=== PATIENT | male | born 1965 | race Caucasian/White ===

== ENCOUNTER 2020-02-28 08:35 | Inpatient (IN) ==
--- NOTE | 2020-02-22 11:23 | History & Physical Report ---
Date of Service February 22, 2020 Assessment & Plan (1) Neurogenic claudication due to lumbar spinal stenosis: This time the patient's had a decline neurologic status with developing leg weakness and foot drop. Subsequently recommending urgent lumbar decompression fusion L3-L5 with hardware removal L5-S1. Hopefully we were able to prevent permanent neurologic sequelae and deficits. Risk benefits pros cons alternatives were outlined in detail. Present on Admission?: Yes History of Present Illness Chief Complaint: Back with bilateral leg pain and weakness Primary Care Provider: Dylan Corea This is a 54-year-old male who presents with marked decline in status. He is noting worsening back pain with radiation into the bilateral buttocks posterior thighs to his feet. There is concomitant weakness exacerbated with standing and ambulation. The left leg is markedly worse. He is failed extensive course of nonoperative care and noting decline in function particularly to the left lower extremity quadriceps and dorsiflexion. Allergies Allergy/AdvReac Type Severity Reaction Status Date / Time silver nitrate Allergy Severe Hives Verified 02/20/20 14:12 Penicillins Allergy Unknown UNKNOWN Verified 02/20/20 14:12 Home Medications Home Medications Medication Instructions Recorded Confirmed Type atorvastatin 40 mg PO PM 02/20/20 02/20/20 History famotidine [Pepcid] 40 mg PO QAM 02/20/20 02/20/20 History gabapentin 300 mg PO TID 02/20/20 02/20/20 History tramadol 100 mg PO BID PRN 02/20/20 02/20/20 History Past Med/Surg History Medical History (Updated 02/22/20 @ 11:22 by Nicholas Coreas DO) Chronic back pain Degenerative disc disease Fusion of spine 10 YRS AGO >LUMBAR GERD (gastroesophageal reflux disease) Hyperlipidemia Surgical History (Updated 02/20/20 @ 14:18 by Prachi Rao RN) History of appendectomy History of carpal tunnel release BILAT Hx of decompression of ulnar nerve LEFT Hx of shoulder surgery RIGHT BICEPT TENDON REPAIR Family History (Updated 02/20/20 @ 14:18 by Prachi Rao RN) Mother Diabetes Social History Preferred Language: Citizen Of [place] Communication Ability: Effective Etl Application Developer Required: No Beliefs That Will Affect Care: None Current Living Situation: Significant Other Feels Safe at Home: Yes Smoking Status: Former smoker Second Hand Exposure: No ; Hx Alcohol Use: Yes Alcohol type: beer Hx Substance Use: No Physical Exam Physical Exam: Patient is alert and oriented On exam he is in obvious distress. Ambulates with a stooped posture. He has sensory deficits vertically along the left thigh compared to the right. He exhibits a 4/5 left quadriceps dorsiflexion compared to 5/5 on the right. Heart is regular rate and rhythm Lungs clear to auscultation Results & Data Diagnostic Findings MRI lumbar spine demonstrates evidence of anterolisthesis L4-L5 with marked facet hypertrophy and subarticular disease. He has pre-existing fusion at L5-S1 that appears to be solid. L3-4 has at least moderate subarticular stenosis. With moderate to severe bilateral neuroforaminal disease L3-4 L4-5.
--- NOTE | 2020-02-27 08:45 | Anesthesiology Consultation ---
Date of Service February 27, 2020 Assessment & Plan (1) Encounter for pre-operative examination: EKG AM DOS COVID Status: As of 02/19 nurse interview, patient denies travel outside of [facility] (where he resides), known exposure/sick contacts, symptoms, or testing for coronavirus. Chart Review Chart Review: Acceptable Risk for Surgery and Patient NOT seen in Pre Admission Testing History Surgery Operation Date: 02/28/20 10:35 Proposed Procedures p L3-L5 Decompression and Fusion, L5-S1 Hardware Removal, Spinal Cord Monitoring - Nicholas Coreas DO Height/Weight Height: 5 ft 8 in Weight: 102.512 kg Allergies Allergy/AdvReac Type Severity Reaction Status Date / Time silver nitrate Allergy Severe Hives Verified 02/20/20 14:12 Penicillins Allergy Unknown UNKNOWN Verified 02/20/20 14:12 Medications Home Medications Medication Instructions Recorded Confirmed Last Taken atorvastatin 40 mg PO PM 02/20/20 02/20/20 Unknown famotidine [Pepcid] 40 mg PO QAM 02/20/20 02/20/20 Unknown gabapentin 300 mg PO TID 02/20/20 02/20/20 Unknown tramadol 100 mg PO BID PRN 02/20/20 02/20/20 Unknown Past Medical History Medical History Chronic back pain Degenerative disc disease Fusion of spine 10 YRS AGO >LUMBAR GERD (gastroesophageal reflux disease) Hyperlipidemia Obesity Past Family History Family History Mother Diabetes Past Surgical History Surgical History History of appendectomy History of carpal tunnel release BILAT Hx of decompression of ulnar nerve LEFT Hx of shoulder surgery RIGHT BICEP TENDON REPAIR Social History Smoking Status: Former smoker Do You Dip or Chew Tobacco: No Smoking End Date: QUIT 2 YRS AGO Hx Alcohol Use: Yes Alcohol type: beer alcohol intake frequency: a few times a week Hx Substance Use: No substance use type: does not use Testing Laboratory Results 02/24/20 WBC: 5.8 H/H: 15.0/42.3 PLATELETS: 235 SODIUM: 137 POTASSIUM: 4.1 CHLORIDE: 103 CO2: 21 BUN: 19 CREATININE: 1.03 GLUCOSE: 96
--- NOTE | 2020-02-27 11:23 | Communication Note ---
Date of Service: February 27, 2020 COVID ASSESSMENT: Travel assessment/history reviewed - low risk at this time - will be reviewed the morning of surgery. Patient resides in [facility] but no other travel.
[~2020-02-28 08:35] MED LIST: CLINDAMYCIN 600 MG/54 ML BAG IV SCH; GABAPENTIN 900 MG DOSE PO SCH; LR 15ML/HR IV SCH; MIDAZOLAM HCL 1 MG/ML 2ML VIAL ONE; fentaNYL citrate 100 MCG/2 ML VIAL ONE
[2020-02-28] MEDS ORDERED: ONDANSETRON INJ 2 MG/ML 2 ML VIAL ONE (09:04)
[2020-02-28] MEDS ORDERED: GLYCOPYRROLATE 0.2 MG/ML VIAL ONE (09:04)
[2020-02-28] MEDS ORDERED: LARYING-O-JET KIT (LTA) ONE (09:04)
[2020-02-28] MEDS ORDERED: PHENYLEPHRINE HCL 10 MG/ML VIAL ONE (09:04)
[2020-02-28] MEDS ORDERED: PROPOFOL IV EMULSION 10 MG/ML 20 ML VIAL IV ONE (09:04)
[2020-02-28] MEDS ORDERED: LIDOCAINE HCL 2% 2 ML VIAL/AMP(20MG/ML) INFIL ONE (09:04)
[2020-02-28] MEDS ORDERED: ROCURONIUM BROMIDE 10 MG/ML 5 ML VIAL ONE (09:04)
[2020-02-28] MEDS ORDERED: DEXAMETHASONE SOD INJ 4 MG/ML VIAL ONE (09:04)
[2020-02-28] MEDS ORDERED: ePHEDrine sulfate 50 MG/ML AMP ONE (09:04)
[2020-02-28] MEDS ORDERED: NEOSTIGMINE METHYLSULFATE 5 MG/5 ML SYR ONE (09:04)
--- NOTE | 2020-02-28 09:22 | XRay Report ---
XR chest Pre-admission PA/Lat HISTORY: PREOP COMPARISON: None. FINDINGS: The lungs are clear. Cardiac silhouette is normal in size. No pleural effusions. No pneumot horax. IMPRESSION: No acute process. ACT 112: Negative or not required by law. Electronically signed by: George Huitron M.D. 02/28/2020 9:21 AM
--- NOTE | 2020-02-28 10:17 | History & Physical Report ---
Date of Service February 22, 2020 History of Present Illness Primary Care Provider: Dylan Corea Allergies Allergy/AdvReac Type Severity Reaction Status Date / Time silver nitrate Allergy Severe Hives Verified 02/28/20 09:01 Penicillins Allergy Unknown UNKNOWN Verified 02/28/20 09:01 Home Medications Home Medications Medication Instructions Recorded Confirmed Type atorvastatin 40 mg PO PM 02/20/20 02/28/20 History famotidine [Pepcid] 40 mg PO QAM 02/20/20 02/28/20 History gabapentin 300 mg PO TID 02/20/20 02/28/20 History tramadol 100 mg PO BID PRN 02/20/20 02/28/20 History Past Med/Surg History Medical History Chronic back pain Degenerative disc disease Fusion of spine 10 YRS AGO >LUMBAR GERD (gastroesophageal reflux disease) Hyperlipidemia Obesity Surgical History History of appendectomy History of carpal tunnel release BILAT Hx of decompression of ulnar nerve LEFT Hx of shoulder surgery RIGHT BICEP TENDON REPAIR Family History Mother Diabetes Social History Preferred Language: Tajik Communication Ability: Effective Microsoft Exchange Architect Required: No Beliefs That Will Affect Care: None Current Living Situation: Significant Other Other Information That Helps Us Care for You: No Feels Safe at Home: Yes Safety Concerns: Feels Safe At This Time Smoking Status: Former smoker Do You Dip or Chew Tobacco: No ; Smoking End Date: QUIT 2 YRS AGO ; Second Hand Exposure: No ; Tobacco Cessation Education Requested by Patient: No Hx Alcohol Use: Yes Alcohol type: beer Hx Substance Use: No
--- NOTE | 2020-02-28 10:17 | History & Physical Bridge Note ---
Date of Service February 28, 2020 History & Physical Bridge Note I have examined the patient, reviewed the History & Physical and in the interval since the performance of the History & Physical I have noted the following changes of clinical significance: no changes noted
[2020-02-28] MEDS ORDERED: ATROPINE SULFATE 0.1 MG/ML 10ML SYR IV PRN (10:25)
[2020-02-28] MEDS ORDERED: ONDANSETRON INJ 2 MG/ML 2 ML VIAL IV PRN ×2 (10:25→15:52)
[2020-02-28] MEDS ORDERED: LABETALOL HCL IV 5 MG/ML 20ML IV PRN (10:25)
[2020-02-28] MEDS ORDERED: BACITRACIN INJ 50,000 UNIT VIAL ONE (10:41)
[2020-02-28] MEDS ORDERED: BUPIVACAINE/EPINEPHRINE 0.25% 1:200,000 30 ML VIAL ONE (10:41)
[2020-02-28] MEDS ORDERED: FLOSEAL HEMOSTATIC MATRIX 10ML TOP ONE (12:07)
[2020-02-28] MEDS ORDERED: HYDROmorphone INJ 2 MG/ML SYR/VIAL ONE (12:22)
--- NOTE | 2020-02-28 13:36 | Operative Report ---
Post Operative Report Pre & Post Diagnosis Operation Date: 02/28/20 10:35 Pre-Op Diagnosis: Lumbar spinal stenosis with neurogenic claudication Spondylolisthesis L4-L5 Post-Op Diagnosis: Same I identified the patient and participated in the time-out.: Yes Procedure Operation Date: 02/28/20 10:35 Actual Procedures #1 removal of posterior instrumentation L5-S1. #2 exploration of fusion L5-S1. #3 lumbar decompression with bilateral medial facetectomies and foraminotomies L3-4 L4-5. #4 posterior spinal fusion L3-4 L4-5. #5 placement posterior instru mentation L3-4 L4-5 per #6 interbody fusion L4-5. #7 placement of peek cage 15 x 26 mm at L4-5. #8 placement of locally harvested morselized autograft in the posterior lateral gutters. #9 placement infuse collagen sponge, master graft in the posterior lateral gutters and ostial amp and interbody space. Surgeon Nicholas Coreas, Dish Room Worker Deb Ac Estimated Blood Loss 700 Findings See Below Patient is 5 foot 8 inches tall weighing over 102 kg with a BMI in excess of 34. The patient's body habitus did create significant technical difficulty adding at least 50% increase to the operative time. Specimens None Indications This is a 54-year-old male who presents with marked decline in status and subsequently is here for the above-mentioned procedure. Description of Procedure Patient was met with identified informed consent obtained. Patient was then taken to the operative suite underwent intubation placed in a prone position on the Chang table on top of the Mauro frame. All bony prominences well-padded eyes inspected to ensure no external pressure placed upon them. This point the lumbar spine was prepped and draped in a normal sterile fashion. Sharp dissection with the assistance of Bovie cautery is performed down to and exposing the lamina and transverse processes of L3-L4 and instrumentation at L5 and S1 levels bilaterally. Then proceeded move the hardware bilaterally exploring the fusion mass noting it to be intact. Then performed a complete laminectomy of L4 partial laminectomy of L3 including bilateral medial facetectomies and foraminotomies to address severe spinal stenosis. Pedicle screws were then placed in L3 L4-5 bilaterally with assistance of fluoroscopy and appropriately sized felice placed. By way of a trans-foramen approach on the left complete discectomy was performed endplates curetted to subcortical bleeding bone and a 15 x 26 mm peek cage filled with osteo-bone graft tapped in position. The rods were then locked in final position bilaterally. The transverse processes of L3-L4-L5 bur to subcortical bleeding bone. Infuse collagen sponge master graft local autograft was placed in the posterior lateral gutters. 15 round KYRA drain inserted. The incision was then closed with 1 Vicryl to fascia 2-0 Vicryl subcutaneously and 4 Monocryl for final skin closure. Steri-Strip sterile dressings placed. Patient will continue to PACU stable condition. Please note spinal cord monitoring was utilized that the procedure no changes noted. Lastly Deb Ac was present at the entire procedure.the patient positioning complex portions of the procedure and final skin closure. I attest to the content of the Intraoperative Record and any orders documented therein. Any exceptions are noted below.
--- NOTE | 2020-02-28 13:42 | Fluoroscopy Report ---
FL lumbar spine 2-3V CLINICAL HISTORY: Decompression and fusion. COMPARISON STUDY: Lumbar spine radiographs October 08, 2010. FLUOROSCOPY TIME: 19.3 seconds. FLUOROSCOPIC IMAGES: 2 FINDINGS: Previous L5-S1 discectomy with interbody spacer placement is noted. Interval L4-L5 discecto my with interbody spacer placement as noted. There is a posterior decompression. There are bilateral pedicle screws at the L3, L4 and L5 levels with interconnecting rods. Dr. Coreas was aware of the halle ear radiodensity projecting over the inferior L4 vertebral body at time of fluoroscopy. IMPRESSION: Fluoroscopy provided for L4-L5 discectomy and posterior decompression with L3-L5 bilater al pedicle screw fusion. ACT 112: Negative or not required by law. Electronically signed by: Sean Campo M.D. 02/28/2020 1:40 PM
[2020-02-28] MEDS: HYDROmorphone INJ 1 MG/ML SYRINGE IV PRN ×8 (14:14→14:49)
--- NOTE | 2020-02-28 15:22 | Anesthesiology Progress Note ---
Date of Service February 28, 2020 Anesthesia Post Procedure Vital Signs Vital Signs: Temp Pulse Pulse Resp BP BP Pulse Ox 02/28/20 15:15 70 13 101/70 95 02/28/20 15:05 36.3 C L 75 12 115/68 92 02/28/20 14:55 67 10 L 119/70 95 02/28/20 14:45 75 12 116/65 98 02/28/20 14:35 66 12 107/68 97 02/28/20 14:25 84 15 107/62 93 02/28/20 14:15 88 17 123/78 97 02/28/20 14:09 36.1 C L 80 12 146/79 H 100 02/28/20 09:07 36.8 C 76 18 123/60 Pain Intensity Lower Back: Pain Intensity: 5 Transfer of Care Handoff Completed per policy Notes Mental Status: alert / awake / arousable Patient Amnestic to Procedure: Yes Nausea / Vomiting: adequately controlled Pain: adequately controlled Airway Patency, RR, SpO2: stable & adequate BP & HR: stable & adequate Hydration State: stable & adequate Anesthetic Complications: no major complications apparent
[2020-02-28] MEDS ORDERED: bisacodyL 10 MG SUPP PR PRN (15:52)
[2020-02-28] MEDS ORDERED: HYDROmorphone INJ 1 MG/ML SYRINGE IV PRN (15:52)
[2020-02-28] MEDS ORDERED: HYDROmorphone INJ 0.5 MG/0.5 ML SYR IV PRN (15:52)
[2020-02-28] MEDS ORDERED: FAMOTIDINE 20 MG TAB PO PRN (15:52)
[2020-02-28] MEDS ORDERED: PROMETHAZINE HCL 12.5 MG in SODIUM CHLORIDE 0.9% 50 ML IV PRN (15:52)
[2020-02-28] MEDS ORDERED: SOD PHOSPHATE/SOD BIPHOSPHATE ENEMA 132 ML BTL PR PRN (15:52)
[2020-02-28] MEDS ORDERED: ONDANSETRON 4 MG OD TAB PO PRN (15:52)
[2020-02-28] MEDS ORDERED: ACETAMINOPHEN 1,000 MG/100 ML VIAL IV PRN (15:52)
[2020-02-28] MEDS ORDERED: NALOXONE HCL 0.4 MG/1 ML VIAL/CARP IV PRN (15:52)
[2020-02-28] MEDS ORDERED: LORazepam 0.5 MG/1 ML VIAL IV PRN (15:52)
[2020-02-28] MEDS ORDERED: LORazepam 0.5 MG TAB PO PRN (15:52)
[2020-02-28] MEDS ORDERED: METOCLOPRAMIDE HCL INJ 5 MG/ML 2 ML VIAL IV PRN (15:52)
[2020-02-28] MEDS ORDERED: TRAMADOL HCL 50 MG TABLET PO PRN (15:52)
[2020-02-28] MEDS ORDERED: DO NOT ADMINISTER PNEUMOCOCCAL VACCINE PRN (15:52)
[2020-02-28] MEDS ORDERED: DO NOT ADMINISTER FLU VACCINE PRN (15:52)
[2020-02-28] MEDS ORDERED: MAGNESIUM HYDROXIDE SUSP 30 ML UDC PO PRN (15:52)
[2020-02-28] MEDS ORDERED: ACETAMINOPHEN 500 MG TAB PO PRN (15:52)
[2020-02-28] MEDS ORDERED: ALUMINUM/MAGNESIUM SUSP 30 ML UDC PO PRN (15:52)
--- NOTE | 2020-02-28 15:53 | Electrocardiogram Report ---
Test Reason : Blood Pressure : / mmHG Vent. Rate : 065 BPM Atrial Rate : 065 BPM P-R Int : 182 ms QRS Dur : 082 ms QT Int : 414 ms P-R-T Axes : 059 033 046 degrees QTc Int : 430 ms Normal sinus rhythm Normal ECG When compared with ECG of 24-SEP-2010 15:12, No significant change was found Confirmed by Isaías Tse ([id number]) on 02/28/2020 3:52:45 PM Referred By: Nicholas Coreas Confirmed By:Chris Tse
[2020-02-28] MEDS: GABAPENTIN 300 MG CAP PO SCH ×2 (18:15→21:15)
[2020-02-28] MEDS: KETOROLAC 30 MG/ML VIAL IV SCH ×2 (18:15→23:56)
[2020-02-28] MEDS: CLINDAMYCIN 600 MG in DEXTROSE 5% 50 ML IV SCH (18:15)
[2020-02-28] MEDS: OXYCODONE HCL IR 5 MG TAB (IMMEDIATE RELEASE) PO PRN (18:21)
[2020-02-28] MEDS: LACTATED RINGER'S 1,000 ML IV SCH (18:23)
[2020-02-28] MEDS: DOCUSATE SODIUM/SENNA 50/8.6MG TAB PO SCH (21:15)
[2020-02-28] MEDS: ATORVASTATIN 40 MG TAB PO SCH (21:15)
[2020-02-29] MEDS: CLINDAMYCIN 600 MG in DEXTROSE 5% 50 ML IV SCH (03:20)
[2020-02-29] MEDS: KETOROLAC 30 MG/ML VIAL IV SCH ×2 (05:41→12:03)
[2020-02-29] MEDS: POLYETHYLENE (MIRALAX) 17 GM PACK PO SCH ×2 (05:41→12:04)
[2020-02-29] MEDS: LACTATED RINGER'S 1,000 ML IV SCH (06:40)
[2020-02-29 07:14] LABS: Basophils # (auto) 0.01 K/uL (0-0.2); Basophils % (auto) 0.1 %; Hematocrit (blood only) 31.2 % (42-52); Hemoglobin 10.8 g/dL (14.0-18.0); Immature Granulocytes # (auto) 0.01 K/uL (0.00-0.02); Immature Granulocytes % (auto) 0.1 %; Lymphocytes # (auto) 1.45 K/uL (1.2-3.4); Lymphocytes % (auto) 13.9 %; Mean Corpuscular Hemoglobin 30.1 pg (25-34); Mean Corpuscular Hgb Conc 34.6 g/dL (32-36); Mean Corpuscular Volume 86.9 fL (80-100); Mean Platelet Volume 8.9 fL (7.4-10.4); Monocytes # (auto) 0.47 K/uL (0.11-0.59); Monocytes % (auto) 4.5 %; Neutrophils # (auto) 8.46 K/uL (1.4-6.5); Neutrophils % (auto) 81.4 %; Platelet Count 201 K/uL (130-400); RDW Coefficient of Variation 12.7 % (11.5-14.5); RDW Standard Deviation 40.8 fL (36.4-46.3); Red Blood Count 3.59 M/uL (4.7-6.1)
[2020-02-29 07:23] LABS: BUN Creatinine Ratio 15.9 (10-20); Calcium 8.3 mg/dl (8.5-10.1); Creatinine Clr Calc Pharmacy 81.4 ml/min; Est GFR (African American) 77.7; Est GFR (Non-African American) 67.1
[2020-02-29] MEDS: FAMOTIDINE 40 MG TABLET PO SCH (09:21)
[2020-02-29] MEDS: GABAPENTIN 300 MG CAP PO SCH ×3 (09:21→20:49)
[2020-02-29] MEDS: OXYCODONE HCL IR 5 MG TAB (IMMEDIATE RELEASE) PO PRN ×2 (09:25→19:02)
--- NOTE | 2020-02-29 10:17 | Orthopedic Progress Note ---
Date of Service February 29, 2020 Assessment & Plan (1) Neurogenic claudication due to lumbar spinal stenosis: This time we will continue physical therapy monitor his KYRA output hopefully discharge home tomorrow. Present on Admission?: Yes Admission and Anticipated Discharge Date Admission Date: February 28, 2020 Subjective Back pain controlled leg symptoms markedly improved. Physical Exam Physical Exam: Patient is in the chair at the bedside. Skin strength testing. Appears comfortable. Results & Data ([facility]) Vital Signs (Past 12 Hours) Vital Signs Temp Pulse Resp BP Pulse Ox 02/29/20 06:51 36.4 C L 86 18 100/67 97 02/29/20 03:20 36.7 C 81 15 106/68 97 02/28/20 23:13 36.9 C 77 15 99/64 L 96
[2020-02-29] MEDS: DOCUSATE SODIUM/SENNA 50/8.6MG TAB PO SCH (20:48)
[2020-02-29] MEDS: ATORVASTATIN 40 MG TAB PO SCH (20:49)
[2020-03-01] MEDS: OXYCODONE HCL IR 5 MG TAB (IMMEDIATE RELEASE) PO PRN ×4 (04:21→20:11)
[2020-03-01] MEDS: GABAPENTIN 300 MG CAP PO SCH ×3 (08:14→20:12)
[2020-03-01] MEDS: FAMOTIDINE 40 MG TABLET PO SCH (08:15)
--- NOTE | 2020-03-01 08:36 | Orthopedic Progress Note ---
Date of Service March 01, 2020 Assessment & Plan (1) Neurogenic claudication due to lumbar spinal stenosis: This time we will continue physical therapy. Monitor KYRA output. Anticipate possible discharge home tomorrow. Present on Admission?: Yes Admission and Anticipated Discharge Date Admission Date: February 28, 2020 Subjective Patient is struggling with a bit more back and leg pain today. Is still up and ambulating. Physical Exam Physical Exam: He has good strength testing. Results & Data ([facility]) Vital Signs (Past 12 Hours) Vital Signs Temp Pulse Resp BP Pulse Ox 03/01/20 06:58 37.3 C 100 H 18 132/71 98 02/29/20 23:50 36.8 C 81 16 123/72 97
[2020-03-01] MEDS ORDERED: DEXAMETHASONE SOD PHOSPHATE 8 MG in SYRINGE 0 ML IV ONE (09:00)
[2020-03-01] MEDS: DOCUSATE SODIUM/SENNA 50/8.6MG TAB PO SCH (20:11)
[2020-03-01] MEDS: ATORVASTATIN 40 MG TAB PO SCH (20:12)
[2020-03-01 23:37] VITALS: TEMP 97.9; O2SAT 97
[2020-03-02] MEDS: OXYCODONE HCL IR 5 MG TAB (IMMEDIATE RELEASE) PO PRN ×3 (00:24→10:32)
[2020-03-02] MEDS: GABAPENTIN 300 MG CAP PO SCH (06:19)
[2020-03-02] MEDS: FAMOTIDINE 40 MG TABLET PO SCH (06:19)
[2020-03-02 07:38] VITALS: PULSE 76
[2020-03-02 09:40] VITALS: BP 99/61
--- NOTE | 2020-03-02 10:00 | Discharge Summary ---
Date of Service March 02, 2020 Admission HPI Per Admitting Provider This is a 54-year-old male who presents with marked decline in status. He is noting worsening back pain with radiation into the bilateral buttocks posterior thighs to his feet. There is concomitant weakness exacerbated with standing and ambulation. The left leg is markedly worse. He is failed extensive course of nonoperative care and noting decline in function particularly to the left lower extremity quadriceps and dorsiflexion. Principal Diagnosis Lumbar spinal stenosis with neurogenic claudication Discharge Data Allergies Allergy/AdvReac Type Severity Reaction Status Date / Time silver nitrate Allergy Severe Hives Verified 02/28/20 09:01 Penicillins Allergy Unknown UNKNOWN Verified 02/28/20 09:01 Consultations 02/28/20 15:52 Consult Case Management - Discharge Planning Routine Procedures Performed Operation Date: 02/28/20 10:35 Actual Procedures p L3-L5 Decompression and Fusion, Spinal Cord Monitoring(Not Applicable) - Nicholas Coreas DO s L5-S1 Hardware Removal(Not Applicable) - Nicholas Coreas DO Ordered Studies 02/28/20 10:35 FL fluoroscopy <1hr Routine FL lumbar spine 2-3V Routine Hospital Course (1) Neurogenic claudication due to lumbar spinal stenosis: Patient underwent lumbar decompression fusion tolerated this well was taken to orthopedic for postoperative. Postop day 1 is up and ambulating progressed to postop day #2 on postop day #3 KYRA drain decreased probably. Pain well controlled. Subsequently discharged home. Discharge orders and instructions from the chart for further review. Total Time Total Time Spent Total Time Spent (In Minutes): 20 minutes Discharge Plan Discharge Items Patient Disposition: Home - Self-Care Reason For Visit: Osseous and Subiuxation Stenosis of Intervertebral Discharge Diagnosis: Lumbar spinal stenosis with neurogenic claudication Activity: As commented below Non-emergency contact: Primary Care Provider Call non-emergency contact if: you have any medication questions Follow-up/Referrals: Dylan Corea [Primary Care Provider] - Diet: Regular Addtl Attending Provider Instructions: ACTIVITY RECOMMENDATIONS: SELF CARE INSTRUCTIONS AFTER THORACIC/LUMBAR FUSIONS 1. You may walk to your tolerance. It is good exercise for your legs and back. Expect some back and intermittent leg aches and pains. 2. You may perform "counter-top" level activities (make a sandwich, jackelyn with a project, etc.). 3. No bending or lifting of more than 10 pounds or back twisting of any nature (roll like a log when turning in bed). 4. You may ride in a car for 20-30 minutes at a time. No driving until after your first visit with your doctor. 5. Frequent changes of position and restricting sitting to 30 minutes at a time will help limit the amount of back spasms and stiffness you may experience. 6. You may discontinue the use of ambulatory aids (cane, crutches, etc.) once your strength and confidence allow. 7. You may senior controls engineer the shower and let water strike your incision when you arrive home at least once daily. Do not take a tub bath, sit in a hot tub or go into a swimming pool until after your first recheck in the office. SPECIAL CARE INSTRUCTIONS: VERY IMPORTANT TO READ AND REVIEW A. Your surgical incision has been closed with a cosmetic suture under the skin that will dissolve in about 6 weeks. In 14 days, you can use a pair of clean scissors and cut the suture that is left outside of the skin at the ends of your incision. 1. The small skin tapes can be removed 7 days after surgery if they have not fallen off by that point. 2. You may keep the wound open to air as much as possible to promote healing after post-op day number 5 unless told otherwise by your doctor. 3. If you think the wound looks like it is becoming infected (redness or worsening drainage) and/or you are experiencing fever, chill or worsening back pain and muscle spasms, contact the office so that we may evaluate you as soon as possible. B. Complications are uncommon, but please contact us if you have any signs or symptoms of: 1. wound infection (fever higher than 102.5 degrees F, redness, separation of wound, drainage, or increasing pain from the incision) 2. blood clots in legs (pain, swelling, redness and warmth in legs) 3. urinary tract infection (fever higher than 102.5 degrees F, burning upon urination or increased frequency of urination) 4. nerve problems (inability to walk on your toes or heels, numbness, loss of bowel or bladder control) 5. any other symptoms that concern you C. Please call the office at if you have any concerns or questions about your operation or recovery. D. No smoking! Smoking drastically decreases the chance of a solid fusion. E. Do not take any anti-inflammatory medications (Indocin, Advil, Motrin, Aspirin, Naprosyn, etc.) as these may inhibit the chance of a solid fusion. Tylenol is okay to take for pain. MANAGING PAIN AFTER SPINAL SURGERY 1. Narcotic medication is intended for short-term use and will be provided for surgical pain. Surgical pain usually lasts for a period of 4-6 weeks. Narcotic medication includes Percocet, Vicodin, Darvocet, Tylenol #3 or Lortab. 2. Longer-term pain is more appropriately treated with non-narcotic medication such as Tylenol ES. 3. Muscle spasm is not appropriately treated with narcotics. Muscle relaxers such as Soma, Flexeril or Skelaxin can be used along with Tylenol ES. 4. Remember that we all live with some "aches and pains". This is not unusual or uncommon after an injury or as we get older. a. Back pain is expected and may include muscle spasms for 4 to 6 weeks after surgery. The pain should gradually improve. If the pain worsens for no apparent reason, please contact the office. b. Intermittent leg pain may also be experienced and should not be concerned about unless it worsens for no apparent reason. If so, please contact the office. 5. We will provide appropriate medication within the normal guidelines of their prescribed use. We will also be very cautious and aware of potential abuse and extended duration of patients' medication needs. a. Pain medications are for your comfort and to assist with sleep and rest so that the tissue can heal. They are not provided in order to return to normal activity and should not be used through the day. To do so or worsening pain at night can result from ongoing tissue damage and development of tolerance to the prescribed medicine. 6. Please allow 2-3 days to process refills. Prescriptions will not be mailed but must be picked up at the office. FOLLOW UP VISIT: Keep your scheduled follow-up appointment. Any questions, please call the office at . Pending Studies at Discharge: No Stand-Alone Forms: My [employer], Smoking Cessation Medications and DC Order Prescriptions: New tramadol 50 mg tablet 50 mg PO Q6H PRN (Reason: pain, moderate) Qty: 30 RF: 0 oxycodone 5 mg tablet 5 mg PO Q6H PRN (Reason: pain, severe) Qty: 20 RF: 0 Continued atorvastatin 40 mg Tablet 40 mg PO PM RF: 0 famotidine [Pepcid] 40 mg Tablet 40 mg PO QAM RF: 0 gabapentin 300 mg Capsule 300 mg PO TID RF: 0 tramadol 100 mg Tablet 100 mg PO BID PRN (Reason: Pain) RF: 0 Discharge Orders: Discharge Order (Routine); Ordered 03/02/20 Ordered By: Nicholas Coreas Admission Data Admit Date/Time: 02/28/20 14:09 Attending Provider: Nicholas Coreas Admit Provider: Nicholas Coreas Primary Care Provider: Dylan Corea Other Interventions: Discharge Summary Assessment (RN) Last Done: 03/02/20 09:39
== END 2020-03-02 11:36 | disposition home or self-care (01) | DRG 455 ==
LOC: ASU 08:35 → 3E 14:09